=== PATIENT | female | born 1955 | race Caucasian/White ===

== ENCOUNTER 2018-05-03 22:54 | Emergency (ER) | payer OTHER ==
[~2018-05-03] VITALS: Ht 167.6 cm; Wt 102.1 kg
[2018-05-03] MEDS ORDERED: SYNTHROID75 MCG PO (23:21)
[2018-05-03] MEDS ORDERED: OMEPRAZOLE20 MG PO (23:21)
[2018-05-03] MEDS ORDERED: SIMVASTATIN10 MG PO (23:22)
[2018-05-03] MEDS ORDERED: VENTOLIN HFA18 GM INH (23:22)
--- NOTE | 2018-05-05 14:34 | EKG ---
[facility] [address] [facility] [place] [address] Signed Normal sinus rhythm Normal ECG No previous ECGs available Confirmed by KAITLIN BLISS MD ([id number]) on 05/05/2018 2:34:25 PM Electronically Signed By: KAITLIN BLISS MD 05/05/18 1434 PATIENT NAME: EMILIA HANDLEY Electrocardiogram DATE OF : 55 PHYSICIAN: KAITLIN BLISS MD REPORT #: [id number] REPORT IS CONFIDENTIAL AND NOT TO BE RELEASED WITHOUT AUTHORIZATION
== END 2018-05-04 04:06 | disposition home or self-care (01) ==
LOC: ED 22:54
DX: K21.9 Gastro-esophageal reflux disease without esophagitis (principal); R06.2 Wheezing; E11.40 Type 2 diabetes mellitus with diabetic neuropathy, unspecified; Z79.899 Other long term (current) drug therapy
CPT/HCPCS: 71046; 80053; 81001; 83690; 83880; 84484; 85025; 85379; 87088; 93005; 93010; 94640; 96374; 99285-25

== ENCOUNTER 2018-06-17 22:47 | Emergency (ER) | payer OTHER ==
[~2018-06-17] VITALS: Ht 167.6 cm; Wt 102.1 kg
[~2018-06-17 22:47] MED LIST: OMEPRAZOLE20 MG PO; SIMVASTATIN10 MG PO; SYNTHROID75 MCG PO; VENTOLIN HFA18 GM INH
[2018-06-18] MEDS ORDERED: PREDNISONE20 MG PO (00:29)
[2018-06-18] MEDS ORDERED: AUGMENTIN 875-1 EACH PO (00:29)
[2018-06-18] MEDS ORDERED: GUAIFENESIN AC473 ML PO (00:29)
--- NOTE | 2018-06-18 13:57 | EKG ---
[facility] [address] [facility] [place] [address] Signed Sinus tachycardia Abnormal ECG When compared with ECG of 04-MAY-2018 00:38, No significant change was found Confirmed by CURRY RODRIGUEZ MD ([id number] on 06/18/2018 1:57:12 PM Electronically Signed By: CURRY RODRIGUEZ MD 06/18/18 1357 PATIENT NAME: EMILIA HANDLEY Electrocardiogram DATE OF : 55 PHYSICIAN: CURRY RODRIGUEZ MD REPORT #: [id number] REPORT IS CONFIDENTIAL AND NOT TO BE RELEASED WITHOUT AUTHORIZATION
== END 2018-06-18 00:50 | disposition home or self-care (01) ==
LOC: ED 22:47
DX: J45.901 Unspecified asthma with (acute) exacerbation (principal); E11.40 Type 2 diabetes mellitus with diabetic neuropathy, unspecified; Z79.899 Other long term (current) drug therapy
CPT/HCPCS: 71045; 80053; 83880; 85025; 93005; 93010; 94640; 96374; 99285-25; J2930

== ENCOUNTER 2018-07-23 22:00 | Emergency (ER) | payer OTHER ==
[~2018-07-23] VITALS: Ht 167.6 cm; Wt 104.3 kg
[~2018-07-23 22:00] MED LIST changes: +AUGMENTIN 875-1 EACH PO; +BACTRIM DS TAB1 EACH PO; +CEPHALEXIN500 MG PO; +GUAIFENESIN AC473 ML PO; +LANTUS100 UNITS/ SUB-Q; +PREDNISONE20 MG PO
--- OUTSIDE RECORDS SUMMARY | 2018-07-23 22:02 | XMS ---
PreManage Notification: EMILIA HANDLEY Security Iso Coordinator Events No recent Security Events currently on file CRITERIA MET - [facility] - 2 Visits in 30 Days CARE PROVIDERS There are no care providers on record at this time. Li has no Care Guidelines for this patient. [place] VISIT COUNT (12 MO.) [address] [facility] TOTAL 4 NOTE: Visits indicate total known visits. ED/C VISIT TRACKING (12 MO.) 07/23/2018 22:[address] [facility] [place] TYPE: Emergency COMPLAINT: - POSS MEDICATION REACTION 07/23/2018 05:11 [facility] [place] TYPE: Emergency COMPLAINT: - HANG NAIL 06/17/2018 22:47 [facility] [place] TYPE: Emergency COMPLAINT: - SOB, FACIAL NUMBNESS DIAGNOSES: - Type 2 diabetes mellitus with diabetic neuropathy, unspecified - Shortness of breath - Unspecified asthma with (acute) exacerbation - Other marine oil terminal superintendent (current) drug therapy 05/03/2018 22:55 [facility] [place] TYPE: Emergency COMPLAINT: - HEARTBURN,PAIN DIAGNOSES: - Wheezing - Gastro-esophageal reflux disease without esophagitis - Other marine oil terminal superintendent (current) drug therapy - Type 2 diabetes mellitus with diabetic neuropathy, unspecified - Chest pain, unspecified INPATIENT VISIT TRACKING (12 MO.) No inpatient visits to display in this time frame [email or web address]
== END 2018-07-24 01:22 | disposition home or self-care (01) ==
LOC: ED 22:00
DX: Z00.8 Encounter for other general examination (principal); J45.909 Unspecified asthma, uncomplicated; K21.9 Gastro-esophageal reflux disease without esophagitis; E11.40 Type 2 diabetes mellitus with diabetic neuropathy, unspecified; Z79.899 Other long term (current) drug therapy; Z79.4 Long term (current) use of insulin
CPT/HCPCS: 80053; 81001; 85025; 94640; 96361; 96374; 99284-25; J1200; J7030

== ENCOUNTER 2025-03-23 17:37 | Emergency (ER) | payer BC ==
[~2025-03-23] VITALS: Ht 167.6 cm; Wt 104.9 kg
[~2025-03-23 17:37] MED LIST changes: +DULOXETINE HCL60 MG PO; +GABAPENTIN300 MG PO; +METFORMIN HCL500 M1 PO; +MONTELUKAST SOD10 MG PO; +ONDANSETRON ODT8 MG PO; +OZEMPIC2 MG/0.75 SQ
[2025-03-23] MEDS ORDERED: ALBUTEROL/IPRATROPIUM 3 ML NEB INH ONE (17:45)
[2025-03-23] MEDS ORDERED: BENZONATATE 100 MG CAP PO ONE (17:45)
[2025-03-23] MEDS ORDERED: HYDROCODONE/ACETA 5/325 TAB PO ONE (17:45)
[2025-03-23] MEDS ORDERED: INSULIN DE100 UNIT/1 SQ (17:53)
[2025-03-23] MEDS ORDERED: ATORVASTATIN CA20 MG PO (17:53)
[2025-03-23] MEDS ORDERED: OZEMPIC0.25 MG/02 SQ (17:53)
[2025-03-23] MEDS ORDERED: REPAGLINIDE1 MG PO (17:53)
[2025-03-23] MEDS ORDERED: MORPHINE SULFATE 4 MG/ML VIAL IV ONE (18:00)
[2025-03-23] MEDS ORDERED: VENTOLIN HFA18 GM INH (18:58)
[2025-03-23] MEDS ORDERED: PREDNISONE20 MG PO (18:58)
[2025-03-23] MEDS ORDERED: BENZONATATE200 MG PO (18:58)
[2025-03-23 19:05] VITALS: BP 144/93
== END 2025-03-23 19:09 | disposition home or self-care (01) ==
LOC: ED 17:37
DX: J45.901 Unspecified asthma with (acute) exacerbation (principal); E11.40 Type 2 diabetes mellitus with diabetic neuropathy, unspecified; K21.9 Gastro-esophageal reflux disease without esophagitis; Z79.4 Long term (current) use of insulin; Z79.899 Other long term (current) drug therapy
CPT/HCPCS: 71045; 94640; 96374; 96375; 99285-25; J2270; J2919